=== PATIENT | female | born 1945 | race Caucasian/White ===

== ENCOUNTER 2022-05-17 15:16 | Inpatient (IN) ==
[2022-05-17] MEDS ORDERED: ASPIRIN CHEW 324 MG PO STA (15:29)
[2022-05-17] MEDS ORDERED: ONDANSETRON INJ 2 MG/ML 2 ML VIAL ONE (15:30)
[2022-05-17] MEDS ORDERED: ONDANSETRON INJ 2 MG/ML 2 ML VIAL IV STA ×3 (15:33→18:56)
[2022-05-17] MEDS ORDERED: SODIUM CHLORIDE 0.9% 1000ML 1,000 ML IV ONE (15:33)
[2022-05-17] MEDS: METOPROLOL TARTRATE 1 MG/ML VIAL IV STA ×2 (15:35→15:44)
[2022-05-17 15:36] LABS: Basophils # (auto) 0.04 K/uL (0-0.2); Basophils % (auto) 0.4 %; Eosinophils # (auto) 0.17 K/uL (0-0.50); Eosinophils % (auto) 1.6 %; Hematocrit (blood only) 37.2 % (34.1-44.9); Hemoglobin 12.3 g/dl (12.0-16.0); Immature Granulocytes # (auto) 0.06 K/uL (0.00-0.02); Immature Granulocytes % (auto) 0.6 %; Lymphocytes # (auto) 1.97 K/uL (1.2-3.4); Lymphocytes % (auto) 18.6 %; Mean Corpuscular Hemoglobin 28.7 pg (25.0-34.0); Mean Corpuscular Hgb Conc 33.1 g/dL (32.0-36.0); Mean Corpuscular Volume 86.9 fL (80.0-100.0); Mean Platelet Volume 9.9 fL (9.4-12.3); Monocytes # (auto) 0.84 K/uL (0.24-0.82); Monocytes % (auto) 7.9 %; Neutrophils % (auto) 70.9 %; Platelet Count 323 K/uL (130-400); RDW Coefficient of Variation 14.1 % (11.5-14.5); RDW Standard Deviation 44.9 fL (36.4-46.3); Red Blood Count 4.28 M/uL (3.93-5.22); White Blood Count 10.58 K/ul (4.8-10.8)
--- NOTE | 2022-05-17 15:42 | Emergency Department Note ---
Impression & Plan Atrial fibrillation with rapid ventricular response, CAD (coronary artery disease), Chest pain, ISAEL (acute kidney injury) ED Provider Note NAME: WENDY TINEO AGE: 76 SEX: F : 1945 ARRIVES VIA: Walk-In INFORMANT: Patient ED PROVIDER(S): Zeferino Allen DO CHIEF COMPLAINT: chest pain HPI: Patient is a 76-year-old female who presents the ER for chest pressure associate with shortness of breath. She notes that started around 12:00 today. Pain was radiating up to the jaw and down through the chest. Denies any belly pain but admits to nausea. No dysuria, urgency, or frequency. Pain is currently a 4 out of 10. She notes that she was camping and in a side by side when this occurred. ROS: See above HPI for pertinent positives & negatives. A total of 10 systems reviewed and were otherwise negative. PAST MEDICAL HISTORY:See Below PAST SURGICAL HISTORY:See Below FAMILY HISTORY:See Below SOCIAL HISTORY:See Below HOME MEDICATIONS:See Below ALLERGIES:See Below VITALS:See Below PHYSICAL EXAMINATION: GENERAL: Sitting up in bed, alert, well appearing, well nourished, no distress, non-toxic EYE EXAM: normal conjunctiva. OROPHARYNX: mucous membranes are moist NECK: supple, no nuchal rigidity, no adenopathy, non-tender LUNGS: Clear to auscultation. Normal chest wall mechanics HEART: tachyTachycardic and irregular regular, S1 normal and S2 normal ABDOMEN: abdomen soft, non-tender, normo-active bowel sounds, no masses, no rebound or guarding. UPPER EXTREMITIES: upper extremities are grossly normal. LOWER EXTREMITIES: No pitting edema. NEURO EXAM: Normal sensorium, cranial nerves II-XII grossly intact, normal speech, no gross weakness of arms, no gross weakness of legs. No drift. Finger to nose intact. Gross sensation intact. MEDICAL DECISION MAKING: Patient is a 76-year-old female who presents the ER for chest pain and shortness of breath. I was called to the triage bay as she was found to be in A. fib with RVR. She was taken immediately to be 3. IVs were established blood work was obtained. She was given IV Lopressor initially due to the new onset A. fib with a recent cath which appears to have some kind of occlusive disease. Slowed her rate down and she became slightly hypotensive in the 90s. We did repeat her second dose of Lopressor and blood pressures were in the 70s. She was given an additional liter of fluid. Labs show no significant leukocytosis or anemia. INR unremarkable. BMP with a creatinine of 1.9. No old to compare to. LFTs bilirubin was unremarkable. Troponin was only mildly elevated at 34. Lipase unremarkable. Do favor the ST depressions on EKG and mild elevation in troponin is likely mismatch and demand ischemia. She was given aspirin. She was ordered for Cardizem drip. Discussed with Dr. Ken Covington for further evaluation. Please see their note and cardiology's for the cardioversion and additional treatments. Triage Nursing notes reviewed. Limited review of prior medical records performed Vital Signs: reviewed and remarkable for tachy Differential diagnosis: Cardiac ischemia, aortic dissection, pulmonary embolism, pneumothorax, pneumonia, pericarditis, myocarditis, esophageal rupture, GERD, cholecystitis, pancreatitis, musculoskeletal, as well as other pathologies. ER treatment provided: See below Diagnostics interpreted by me: ECG: VR rate of [address] depressions in the inferior and lateral leads QTC 480 Cardiac Monitoring: An order was placed for continuous cardiac monitoring. The monitor shows a rate of 145 with afib rhythm. Laboratory studies: As stated above and show below. Imaging studies: portable AP upright 1 view of the chest is unremarkable Consultation(s): D/w Ken Covington for further evaluation. Critical Care: I have personally spent 35 minutes of critical care time in the direct management of this patient. This includes bedside care, interpretation of diagnostic studies, and testing, discussion with consultants, patient, and family members, and other required patient management activities. This 35 minutes is in excess of all separately billable procedures. Past Med/Surg History Medical History (Updated 05/17/22 @ 18:20 by MINNIE Warren) Atrial fibrillation with rapid ventricular response CAD (coronary artery disease) Hiatal hernia HLD (hyperlipidemia) HTN (hypertension) Hypothyroidism Obesity Surgical History (Updated 05/17/22 @ 18:16 by MINNIE Warren) H/O esophageal hernia repair Family History (Updated 05/17/22 @ 18:16 by MINNIE Warren) Other Heart disease Hypertension Osteoporosis Social History Smoking Status: Never smoker Hx Substance Use: No Feels Safe at Home: Yes Allergies Allergies Allergy/AdvReac Type Severity Reaction Status Date / Time codeine AdvReac Nausea Verified 05/17/22 18:00 morphine AdvReac Nausea Verified 05/17/22 18:00 Home Meds Home Medications Medication Instructions Recorded Confirmed amlodipine 5 mg tablet 5 mg PO DAILY 05/17/22 05/17/22 calcium carbonate 300 mg (750 mg) 300 tab PO BID 05/17/22 05/17/22 chewable tablet carteolol 1 % eye drops 1 drp OPB Q12 05/17/22 05/17/22 cholecalciferol (vitamin D3) 25 25 mcg PO DAILY 05/17/22 05/17/22 mcg (1,000 unit) tablet (Vitamin D3) levothyroxine 50 mcg tablet 50 mcg PO DAILY 05/17/22 05/17/22 lisinopril 5 mg tablet 5 mg PO DAILY 05/17/22 05/17/22 metoprolol tartrate 25 mg tablet 25 mg PO BID 05/17/22 05/17/22 omeprazole 20 mg capsule,delayed 20 mg PO BID 05/17/22 05/17/22 release pantoprazole 40 mg tablet,delayed 40 mg PO DAILY 05/17/22 05/17/22 release simethicone 80 mg chewable tablet 80 mg PO HS 05/17/22 05/17/22 sucralfate 1 gram tablet 1 g PO ACHS 05/17/22 05/17/22 tafluprost (PF) 0.0015 % eye drops 1 drp ophthalmic (eye) DIRECTED 05/17/22 05/17/22 in a dropperette (Zioptan (PF)) Results & Data (ED) Vital Signs Vital Signs - 24 hr 05/17/22 15:22 05/17/22 15:44 05/17/22 15:17 Pulse Rate 114 H 156 H Pulse Rate [Apical] Respiratory Rate 28 H Respiratory Effort / Characteristics Non-Labored Spontaneous Respiratory Depth Normal Respiratory Pattern Regular Blood Pressure 107/86 106/83 Blood Pressure [Left Arm] Blood Pressure Mean 93 Blood Pressure Mean [Left Arm] Pulse Oximetry 100 Oxygen Delivery Method Room Air Sepsis Recent Fever Within 48 Hours No Sepsis New/Unexplained Change in Mental Status N/A Sepsis Action Taken by Nursing Physician Notified End Tidal CO2 (18-54mmHg) 05/17/22 15:29 05/17/22 17:10 05/17/22 17:10 Pulse Rate 140 H 155 H Pulse Rate [Apical] 117 H Respiratory Rate 16 16 16 Respiratory Effort / Characteristics Respiratory Depth Normal Respiratory Pattern Blood Pressure Blood Pressure [Left Arm] 62/28 L 104/46 L Blood Pressure Mean Blood Pressure Mean [Left Arm] 65 Pulse Oximetry 100 98 97 Oxygen Delivery Method Room Air Sepsis Recent Fever Within 48 Hours Sepsis New/Unexplained Change in Mental Status Sepsis Action Taken by Nursing End Tidal CO2 (18-54mmHg) 35 Laboratory Data Result diagrams: 05/17/22 15:25 05/17/22 15:25 Lab Results 05/17/22 05/17/22 05/17/22 Range/Units 15:25 15:25 15:25 WBC 10.58 (4.8-10.8) K/ul RBC 4.28 (3.93-5.22) M/uL Hgb 12.3 (12.0-16.0) g/dl Hct 37.2 (34.1-44.9) % MCV 86.9 (80.0-100.0) fL MCH 28.7 (25.0-34.0) pg MCHC 33.1 (32.0-36.0) g/dL RDW Std Deviation 44.9 (36.4-46.3) fL RDW Coeff of Anurag 14.1 (11.5-14.5) % Plt Count 323 (130-400) K/uL MPV 9.9 (9.4-12.3) fL Immature Gran % (Auto) 0.6 % Neut % (Auto) 70.9 % Lymph % (Auto) 18.6 % [place] % (Auto) 7.9 % Eos % (Auto) 1.6 % Baso % (Auto) 0.4 % Neut # (Auto) 7.50 H (1.4-6.5) K/uL Lymph # (Auto) 1.97 (1.2-3.4) K/uL [place] # (Auto) 0.84 H (0.24-0.82) K/uL Eos # (Auto) 0.17 (0-0.50) K/uL Baso # (Auto) 0.04 (0-0.2) K/uL Immature Gran # (Auto) 0.06 H (0.00-0.02) K/uL PT (9.0-12.0) Seconds INR (0.9-1.1) Sodium 142 (136-145) mmol/L Potassium 4.2 (3.5-5.1) mmol/L Chloride 108 H (98-107) mmol/L Carbon Dioxide 21 (21-32) mmol/L Anion Gap 13 H (3-11) BUN 29 H (6-23) mg/dl Creatinine 1.98 H (0.6-1.2) mg/dl Est Cr Clr Drug Dosing 20.9 ml/min Est GFR ( Amer) 27.7 ml/min Est GFR (Non-Af Amer) 23.9 ml/min BUN/Creatinine Ratio 14.6 (10-20) Glucose 115 H (70-99(Fasting)) mg/dl Calcium 10.3 H (8.5-10.1) mg/dl Magnesium 1.9 (1.7-2.4) mg/dl Total Bilirubin 0.6 (0.2-1.0) mg/dl AST 18 (13-39) U/L ALT 21 (7-52) U/L Alkaline Phosphatase 67 (34-104) U/L Troponin I High Sens 34.8 H (0-14) pg/ml Total Protein 7.0 (6.0-8.3) gm/dl Albumin 4.5 (3.4-5.0) gm/dl Globulin 2.5 (2.5-4.0) gm/dl Albumin/Globulin Ratio 1.8 (0.9-2) Lipase 33 (11-82) U/L 05/17/ Range/Units 15:25 WBC (4.8-10.8) K/ul RBC (3.93-5.22) M/uL Hgb (12.0-16.0) g/dl Hct (34.1-44.9) % MCV (80.0-100.0) fL MCH (25.0-34.0) pg MCHC (32.0-36.0) g/dL RDW Std Deviation (36.4-46.3) fL RDW Coeff of Anurag (11.5-14.5) % Plt Count (130-400) K/uL MPV (9.4-12.3) fL Immature Gran % (Auto) % Neut % (Auto) % Lymph % (Auto) % [place] % (Auto) % Eos % (Auto) % Baso % (Auto) % Neut # (Auto) (1.4-6.5) K/uL Lymph # (Auto) (1.2-3.4) K/uL [place] # (Auto) (0.24-0.82) K/uL Eos # (Auto) (0-0.50) K/uL Baso # (Auto) (0-0.2) K/uL Immature Gran # (Auto) (0.00-0.02) K/uL PT 10.5 (9.0-12.0) Seconds INR 1.0 (0.9-1.1) Sodium (136-145) mmol/L Potassium (3.5-5.1) mmol/L Chloride (98-107) mmol/L Carbon Dioxide (21-32) mmol/L Anion Gap (3-11) BUN (6-23) mg/dl Creatinine (0.6-1.2) mg/dl Est Cr Clr Drug Dosing ml/min Est GFR ( Amer) ml/min Est GFR (Non-Af Amer) ml/min BUN/Creatinine Ratio (10-20) Glucose (70-99(Fasting)) mg/dl Calcium (8.5-10.1) mg/dl Magnesium (1.7-2.4) mg/dl Total Bilirubin (0.2-1.0) mg/dl AST (13-39) U/L ALT (7-52) U/L Alkaline Phosphatase (34-104) U/L Troponin I High Sens (0-14) pg/ml Total Protein (6.0-8.3) gm/dl Albumin (3.4-5.0) gm/dl Globulin (2.5-4.0) gm/dl Albumin/Globulin Ratio (0.9-2) Lipase (11-82) U/L Administered Medications Aspirin (Aspirin Chew 324 Mg) 324 mg PO NOW STA Stop: 05/17/22 15:30 Last Admin: 05/17/22 15:38 Dose: 324 mg Documented By: JANEEN Sodium Chloride (Nss 1000ml) 1,000 mls @ 999 mls/hr IV .Q1H1M ONE Stop: 05/17/22 16:33 Last Admin: 05/17/22 15:39 Dose: 999 mls/hr Documented By: JANEEN Magnesium Sulfate/Dextrose (Magnesium Sulfate / D5w) 1 gm in 100 mls @ 50 mls/hr IV Q2H SYEDA Stop: 05/17/22 20:44 Last Admin: 05/17/22 18:22 Dose: 50 mls/hr Documented By: Infusion: 05/17/22 18:22 Dose: 50 mls/hr Documented By: Admin: 05/17/22 16:37 Dose: 50 mls/hr Documented By: PIERRE Amiodarone HCl/Dextrose (Nexterone / D5w) 150 mg in 100 mls @ 600 mls/hr IV NOW ONE Stop: 05/17/22 17:39 Last Admin: 05/17/22 17:46 Dose: 600 mls/hr Documented By: JANEEN Co-signed By: JUDSON Amiodarone HCl/Dextrose (Nexterone / D5w) 360 mg in 200 mls @ 33.333 mls/hr IV .Q6H SYEDA Stop: 05/17/22 23:29 Last Admin: 05/17/22 17:47 Dose: 1 mg/min, 33.3 mls/hr Documented By: JANEEN Co-signed By: JUDSON Metoprolol Tartrate (Metoprolol Tartrate 1 Mg/Ml Vial) 5 mg IV NOW STA Stop: 05/17/22 15:30 Last Admin: 05/17/22 15:44 Dose: 5 mg Documented By: Admin: 05/17/22 15:35 Dose: 5 mg Documented By: JANEEN Metoprolol Tartrate (Metoprolol Tartrate 1 Mg/Ml Vial) 5 mg IV NOW STA Stop: 05/17/22 16:50 Last Admin: 05/17/22 17:47 Dose: 5 mg Documented By: JANEEN Metoprolol Tartrate (Metoprolol Tartrate 1 Mg/Ml Vial) 5 mg IV NOW STA Stop: 05/17/22 16:58 Last Admin: 05/17/22 17:51 Dose: Not Given Documented By: JANEEN Ondansetron HCl (Ondansetron Inj 2 Mg/Ml 2 Ml Vial) 4 mg IV NOW STA Stop: 05/17/22 15:34 Last Admin: 05/17/22 15:39 Dose: Not Given Documented By: JANEEN Ondansetron HCl (Ondansetron Inj 2 Mg/Ml 2 Ml Vial) 4 mg IV NOW STA Stop: 05/17/22 16:25 Last Admin: 05/17/22 16:32 Dose: 4 mg Documented By: PIERRE Discontinued Medications Amiodarone HCl/Dextrose (Amiodarone 150mg / 100ml D5w) Confirm Administered Dose 150 mg IV .STK-MED ONE Stop: 05/17/22 17:19 Last Admin: 05/17/22 17:51 Dose: Not Given Documented By: JANEEN Diltiazem HCl (Diltiazem Hcl 5 Mg/Ml 5 Ml Vial) 10 mg IV NOW STA Stop: 05/17/22 16:17 Last Admin: 05/17/22 18:10 Dose: Not Given Documented By: JANEEN Etomidate (Etomidate 2 Mg/Ml 20 Ml Vial) Confirm Administered Dose 40 mg IV .STK-MED ONE Stop: 05/17/22 17:13 Last Admin: 05/17/22 18:09 Dose: Not Given Documented By: JANEEN Heparin Sodium/Dextrose (Heparin 92794 Unit/500 Ml D5w) Confirm Administered Dose 25,000 units IV .STK-MED ONE Stop: 05/17/22 18:15 Last Admin: 05/17/22 18:18 Dose: 650 units Documented By: JANEEN Co-signed By: SANDRA Diltiazem HCl 125 mg/ Dextrose 125 mls @ 5 mls/hr IV .Q24H SYEDA; Protocol Stop: 06/16/22 16:29 Last Admin: 05/17/22 18:10 Dose: Not Given Documented By: JANEEN Miscellaneous (Stat Iv Infusion Titration Per Protocol) 1 each N/A NOW STA Stop: 05/17/22 16:17 Last Admin: 05/17/22 18:09 Dose: Not Given Documented By: JANEEN Ondansetron HCl (Ondansetron Inj 2 Mg/Ml 2 Ml Vial) Confirm Administered Dose 4 mg .ROUTE .STK-MED ONE Stop: 05/17/22 15:31 Last Admin: 05/17/22 15:35 Dose: 4 mg Documented By: JANEEN Imaging Data Radiologist's Impression: Chest X-Ray 05/17/22 15:29 XR chest 1V portable CLINICAL HISTORY: Atypical chest pain. COMPARISON STUDY: No previous studies for comparison. FINDINGS: Lung volumes are normal. Lungs are clear. There is no pneumothorax or pleural effusion. Cardiac size is normal. Mediastinal contours are normal. There is no evidence for pulmonary edema. Patient is rotated. IMPRESSION: No acute cardiopulmonary findings. ACT 112: Negative or not required by law. Electronically signed by: Issa Gaviria M.D. 05/17/2022 4:06 PM Discharge Plan Visit Data Chief Complaint: Chest Pain Stated Complaint: CHEST PAIN, JAW PAIN, VOMITING ED Provider: Zeferino Allen Discharge Problem: Atrial fibrillation with rapid ventricular response, CAD (coronary artery disease), Chest pain, ISEAL (acute kidney injury) Forms Stand Alone Forms: My [facility] Prescriptions Prescriptions: No Action sucralfate 1 gram tablet 1 g PO ACHS calcium carbonate 300 mg (750 mg) tablet,chewable 300 tab PO BID amlodipine 5 mg tablet 5 mg PO DAILY levothyroxine 50 mcg tablet 50 mcg PO DAILY pantoprazole 40 mg tablet,delayed release (DR/EC) 40 mg PO DAILY carteolol 1 % drops 1 drp OPB Q12 omeprazole 20 mg capsule,delayed release(DR/EC) 20 mg PO BID lisinopril 5 mg tablet 5 mg PO DAILY simethicone 80 mg Tablet,Chewable 80 mg PO HS metoprolol tartrate 25 mg tablet 25 mg PO BID cholecalciferol (vitamin D3) [Vitamin D3] 25 mcg (1,000 unit) Tablet 25 mcg PO DAILY Zioptan (PF) 0.0015 % Dropperette 1 drp OPHTHALMIC (EYE) DIRECTED Rx Instructions: administer at bedtime Referrals Referrals: PCP,NO [Physician] -
[2022-05-17 15:58] LABS: Albumin Globulin Ratio 1.8 (0.9-2); Albumin Level 4.5 gm/dl (3.4-5.0); BUN Creatinine Ratio 14.6 (10-20); Bilirubin,Total 0.6 mg/dl (0.2-1.0); Calcium 10.3 mg/dl (8.5-10.1); Creatinine Clr Calc Pharmacy 20.9 ml/min; Est GFR (African American) 27.7 ml/min; Est GFR (Non-African American) 23.9 ml/min; Globulin 2.5 gm/dl (2.5-4.0); Potassium 4.2 mmol/L (3.5-5.1)
[2022-05-17 16:02] LABS: Troponin I High Sensitivity 34.8 pg/ml (0-14)
--- NOTE | 2022-05-17 16:07 | XRay Report ---
XR chest 1V portable CLINICAL HISTORY: Atypical chest pain. COMPARISON STUDY: No previous studies for comparison. FINDINGS: Lung volumes are normal. Lungs are clear. There is no pneumothorax or pleural effusion. Car diac size is normal. Mediastinal contours are normal. There is no evidence for pulmonary edema. Patie nt is rotated. IMPRESSION: No acute cardiopulmonary findings. ACT 112: Negative or not required by law. Electronically signed by: Issa Gaviria M.D. 05/17/2022 4:06 PM
[2022-05-17] MEDS ORDERED: STAT IV Infusion **Titration per Protocol STA (16:16)
[2022-05-17] MEDS ORDERED: dilTIAZem HCl 5 MG/ML 5 ML VIAL IV STA (16:16)
[2022-05-17] MEDS ORDERED: dilTIAZem HCL 125 MG in DEXTROSE 5% 100 ML IV SCH (16:30)
[2022-05-17] MEDS: MAGNESIUM SULFATE / D5W 1 GM/100 ML BAG IV SCH ×2 (16:37→18:22)
[2022-05-17] MEDS ORDERED: METOPROLOL TARTRATE 1 MG/ML VIAL IV STA ×2 (16:49→16:57)
[2022-05-17] MEDS ORDERED: MIDAZOLAM HCL 1 MG/ML 2ML VIAL IV STA (16:56)
[2022-05-17] MEDS ORDERED: fentaNYL citrate 100 MCG/2 ML VIAL IV ONE (16:57)
[2022-05-17] MEDS ORDERED: ETOMIDATE 2 MG/ML 20 ML VIAL IV ONE (17:12)
[2022-05-17] MEDS ORDERED: AMIODARONE 150MG / 100ML D5W IV ONE (17:18)
[2022-05-17] MEDS ORDERED: AMIODARONE / D5W 360 MG/200 ML BAG IV SCH (17:30)
[2022-05-17] MEDS ORDERED: AMIODARONE / D5W 150 MG/100 ML BAG IV ONE (17:30)
--- NOTE | 2022-05-17 17:35 | Cardioversion ---
Date of Service May 17, 2022 PG Electrical Cardioversion Rp Electrical Cardioversion Report Indication: Emergent emergent cardioversion for atrial fibrillation with rapid ventricular response (167 bpm), ST depression, and significant symptoms (nausea and vomiting) Written consent was obtained after the risks and benefits were explained, including but not limited to pain, thermal burn, allergic reaction, aspiration, airway obstruction, laryngospasm, infection, hypotension, and cardiorespiratory arrest. At this time, the risks of the procedure are less than the risks of NOT performing the procedure. The patient was on 100% via NRB and end tidal CO2 monitoring prior to the procedure. Suction, airway equipment, medications, respiratory equipment, ACLS cart, and appropriate personnel were prepared prior to the initiation of the procedure. Sedation was achieved utilizing etomidate 10 mg IV under the supervision of David Burton NP. The biphasic defibrillator was set to 100 joules of energy and synched. After confirmation of sedation and "all clear" safety check the synchronized shock was delivered. There was no change in rhythm. The biphasic defibrillator was set to 150 joules of energy and re-synched. After confirmation of sedation and "all clear" safety check the synchronized shock was delivered This resulted in successful conversion of the dysrhythmia back into sinus rhythm. See nursing notes for dosages and times. There were no complications and the patient recovered uneventfully from the procedure. Subsequent rhythm was sinus with short/rapid atrial runs (SVT seems more likely than A. fib). She did briefly return to a narrow complex tachycardia at 180 bpm but seemed to promptly respond to carotid massage. Coding Level of Care Code Cardioversion, elective Additional Codes Electrical Cardioversion Report ([id number]) Time Spent (min) 40
[2022-05-17] MEDS ORDERED: Heparin IV Adult Wt-Based Low-Dose WITH Bolus Protocol IV SCH (17:41)
--- NOTE | 2022-05-17 17:44 | History & Physical Report ---
Date of Service May 17, 2022 Assessment & Plan (1) Atrial fibrillation with rapid ventricular response: Plan: Patient presents symptomatic with rapid rate, ECG changes and tolerting rate/rythm poorly from heomodynamic standpoint - Cardioversion completed with initial rate control then followed by conversion to NSR at 1700 - Amiodarone infusion 150mg IV over 10 minutes followed by 1mg/hr infusion for 6 hours then 0.5mg/hr for 18 hours - if stable in morning can stop drip and convert to oral dosing - TSH level - Continue to keep MAG ~2.0 - K ~4.0 - ECHO in AM - Heparin infusion with likely transition to DOAC - Cardiology consulted- appreciate assistance (2) GERD (gastroesophageal reflux disease): Plan: GERD with hiatal hernia- she has history of paraesophageal repair - she is planned to have EGD/Colonoscopy in July - remains with dyspepsia and belching - IV PPI now and BID - Continue Carafate - Continue Simethicone- if symptoms persist consider imaging with CT or GI consu ltation - KUB now (3) Elevated troponin: Plan: Likely demand type II at this time - ECG resolved with rate control and conversion - continue to trend HScTNI- medically optimized at this time - follow (4) Hiatal hernia: Plan: As above (5) CAD (coronary artery disease): Plan: nonobstructive sounding with history and medical management - await records from [facility] - Continue with Metoprolol- if HR or BP changes may need to reduce dose - Not on statin at this time- check lipid panel in AM- initiate as deemed appropriate - Continue DONG as BP tolerates (6) HLD (hyperlipidemia): Plan: As above (7) Hypothyroidism: Plan: TSH pending continue synthroid adjust as needed (8) HTN (hypertension): Plan: As above Plan Staff attending Dr. Covington was updated real time and was immediately available for emergent cardioversion. History of Present Illness Primary Care Provider: Mansoor Parry, 76 YOF with medical history of: HTN, HLD, DM, GERD, Hypothyroidism. Patient is a retired nurse. She comes to the EMD today for complaints of jaw pain, vomiting, palpitations with radiation down her arm. Patient states that this started this morning around 11-12, when she was getting out of the camper. She came to the EMD and was noted to be in Afib/Flutter with RVR with HR 140-160. She had routine labs performed, CXR, and ECG done. She was given 10mg IV Lopressor and written for a diltiazem drip. Hospitalist was consulted for admission. Upon evaluation of the patient, she remained persistently nauseated with dry heaves and vomiting, jaw pain with numbness, her HR remains 150 with BP 80-90s. She was started on 2GM of Magnesium while her history was obtained. Overall she was symptomatic and tolerating her rhythm poorly and hemodynamically borderline that would not support pharmacological management. Ditiazem was not administered and discontinued because of BP. Cardiology Dr. Hilton was consulted for cardioversion emergent. He proceeded to come to the bedside. She was consented, due to hemodynamic instability was sedated with Etomidate 10mg IV, she received 2 synchronized cardioversions at 100J each (see procedure note). She did convert to Sinus with runs of afib/SVT in between. She was started on Amiodarone infusion. She is awake and her above symptoms of jaw pain, vomiting and nausea have resolved. She did convert to NSR at 1754. Patient reports that she had symptoms like this previously on of this year. She went to [facility] where she received ECG and breathing treatment, she stated she felt better and left before being fully evaluated. They later called her back at 230 in the morning and instructed her to "come back to the EMD because she was having a heart attack". She reports then she was admitted, placed on heparin infusion and had cardiac catheterization perform ed. She recalls being told she had some age expected changes, but no intervention was required and was medically managed. She was placed on Lasix, which she stopped a few weeks ago because it made her feel "terrible" with nausea and weakness. Since that time she remains active and without chest pain or symptoms of above. Patient will be admitted to PCU: continue amiodarone infusion and heparin drip overnight. COVID test on admission is: Pending Allergies Allergy/AdvReac Type Severity Reaction Status Date / Time codeine AdvReac Nausea Verified 05/17/22 18:00 morphine AdvReac Nausea Verified 05/17/22 18:00 Home Medications Medication Instructions Recorded Confirmed Type amlodipine 5 mg tablet 5 mg PO DAILY 05/17/22 05/17/22 History calcium carbonate 300 mg (750 mg) 300 tab PO BID 05/17/22 05/17/22 History chewable tablet carteolol 1 % eye drops 1 drp OPB Q12 05/17/22 05/17/22 History cholecalciferol (vitamin D3) 25 25 mcg PO DAILY 05/17/22 05/17/22 History mcg (1,000 unit) tablet (Vitamin D3) levothyroxine 50 mcg tablet 50 mcg PO DAILY 05/17/22 05/17/22 History lisinopril 5 mg tablet 5 mg PO DAILY 05/17/22 05/17/22 History metoprolol tartrate 25 mg tablet 25 mg PO BID 05/17/22 05/17/22 History omeprazole 20 mg capsule,delayed 20 mg PO BID 05/17/22 05/17/22 History release pantoprazole 40 mg tablet,delayed 40 mg PO DAILY 05/17/22 05/17/22 History release simethicone 80 mg chewable tablet 80 mg PO HS 05/17/22 05/17/22 History sucralfate 1 gram tablet 1 g PO ACHS 05/17/22 05/17/22 History tafluprost (PF) 0.0015 % eye drops 1 drp ophthalmic (eye) DIRECTED 05/17/22 05/17/22 History in a dropperette (Zioptan (PF)) Past Med/Surg History Medical History Atrial fibrillation with rapid ventricular response CAD (coronary artery disease) Hiatal hernia HLD (hyperlipidemia) HTN (hypertension) Hypothyroidism Obesity Surgical History H/O esophageal hernia repair Family History Other Heart disease Hypertension Osteoporosis Social History Smoking Status: Never smoker Hx Substance Use: No Feels Safe at Home: Yes Review of Systems Review of Systems: REVIEW OF SYSTEMS: Constitutional: No fever, sweats or chills Eyes: No diplopia, no worsening or blurred vision ENT: normal hearing, no trouble swallowing Respiratory: No cough, sputum, dyspnea at rest or on exertion Cardiovascular: (+) jaw pain, chest pain, tightness or palpitations, n/v Abdomen: (+) nausea, vomiting, NO diarrhea or constipation Musculoskeletal: No joint pain, calf pain, swelling Neurologic: No weakness, numbness/tingling, or balance problems Psychiatric: No anxiety or depression Skin: No rash or itch Physical Exam Physical Exam: PHYSICAL EXAM: General: awake, alert, ill appearing Head: Normocephalic, atraumatic ENT: PERRL, EOMI, no pharyngeal exudate, mucous membranes dry Neuro: AAO x 3, speech clear and appropriate, strength intact bilaterally 5/5, sensation intact and equal all extremities and dermatomes, no pronator drift Chest: equal rise and fall of the chest, no accessory muscle use, no heaves or thrills, Clear to auscultation, on room air, Cardiac: irregular rate and rhythm, telemetry reviewed- narrow complex irregular, skin warm dry, cap refill <3 seconds, peripheral pulses +2 no JVD, no murmur, no edema GI: NABS x 4 quadrants, soft, nontender to palpation, no rebound, guarding or tenderness : Spontaneously voiding, no pain, no CVA tenderness, Extremities: Normal inspection, no peripheral edema or erythema, calfs nontender to palpation Psych: Normal mood and affect Skin: no rash or erythema Results & Data Results & Data ([facility]) Vital Signs (Past 12 Hours) Vital Signs Pulse Pulse Resp BP BP Pulse Ox O2 Del Method 05/17/22 17:10 117 H 16 104/46 L 97 05/17/22 17:10 155 H 16 62/28 L 98 05/17/22 15:29 140 H 16 100 Room Air 05/17/22 15:17 Room Air 05/17/22 15:44 156 H 106/83 05/17/22 15:22 114 H 28 H 107/86 100 Laboratory Results Laboratory Results - last 24 hr 05/17/22 05/17/22 05/17/22 15:25 15:25 15:25 WBC 10.58 RBC 4.28 Hgb 12.3 Hct 37.2 MCV 86.9 MCH 28.7 MCHC 33.1 RDW Std Deviation 44.9 RDW Coeff of Anurag 14.1 Plt Count 323 MPV 9.9 Immature Gran % (Auto) 0.6 Neut % (Auto) 70.9 Lymph % (Auto) 18.6 [place] % (Auto) 7.9 Eos % (Auto) 1.6 Baso % (Auto) 0.4 Neut # (Auto) 7.50 H Lymph # (Auto) 1.97 [place] # (Auto) 0.84 H Eos # (Auto) 0.17 Baso # (Auto) 0.04 Immature Gran # (Auto) 0.06 H Sodium 142 Potassium 4.2 Chloride 108 H Carbon Dioxide 21 Anion Gap 13 H BUN 29 H Creatinine 1.98 H Est Cr Clr Drug Dosing 20.9 Est GFR ( Amer) 27.7 Est GFR (Non-Af Amer) 23.9 BUN/Creatinine Ratio 14.6 Glucose 115 H Calcium 10.3 H Magnesium 1.9 Total Bilirubin 0.6 AST 18 ALT 21 Alkaline Phosphatase 67 Troponin I High Sens 34.8 H Total Protein 7.0 Albumin 4.5 Globulin 2.5 Albumin/Globulin Ratio 1.8 Lipase 33 Diagnostic Findings Chest X-Ray 05/17/22 15:29 XR chest 1V portable CLINICAL HISTORY: Atypical chest pain. COMPARISON STUDY: No previous studies for comparison. FINDINGS: Lung volumes are normal. Lungs are clear. There is no pneumothorax or pleural effusion. Cardiac size is normal. Mediastinal contours are normal. There is no evidence for pulmonary edema. Patient is rotated. IMPRESSION: No acute cardiopulmonary findings. ACT 112: Negative or not required by law. Electronically signed by: Issa Gaviria M.D. 05/17/2022 4:06 PM Medications Administered Home Medications amlodipine 5 mg tablet 5 mg PO DAILY 05/17/22 [History Confirmed 05/17/22] calcium carbonate 300 mg (750 mg) chewable tablet 300 tab PO BID 05/17/22 [History Confirmed 05/17/22] carteolol 1 % eye drops 1 drp OPB Q12 05/17/22 [History Confirmed 05/17/22] cholecalciferol (vitamin D3) 25 mcg (1,000 unit) tablet (Vitamin D3) 25 mcg PO DAILY 05/17/22 [History Confirmed 05/17/22] levothyroxine 50 mcg tablet 50 mcg PO DAILY 05/17/22 [History Confirmed 05/17/22] lisinopril 5 mg tablet 5 mg PO DAILY 05/17/22 [History Confirmed 05/17/22] metoprolol tartrate 25 mg tablet 25 mg PO BID 05/17/22 [History Confirmed 05/17/22] omeprazole 20 mg capsule,delayed release 20 mg PO BID 05/17/22 [History Con firmed 05/17/22] pantoprazole 40 mg tablet,delayed release 40 mg PO DAILY 05/17/22 [History Confirmed 05/17/22] simethicone 80 mg chewable tablet 80 mg PO HS 05/17/22 [History Confirmed 05/17/22] sucralfate 1 gram tablet 1 g PO ACHS 05/17/22 [History Confirmed 05/17/22] tafluprost (PF) 0.0015 % eye drops in a dropperette (Zioptan (PF)) 1 drp ophthalmic (eye) DIRECTED 05/17/22 [History Confirmed 05/17/22] Active Medications Aspirin (Aspirin Chew 324 Mg) 324 mg PO NOW STA Stop: 05/17/22 15:30 Last Admin: 05/17/22 15:38 Dose: 324 mg Heparin Sodium (Porcine) (Heparin Sod (Porcine) 1000 Unit/Ml) 1 units IV NOW ONE Stop: 05/17/22 17:55 Heparin Sodium/Dextrose (Heparin Iv Adult Wt-Based Low-Dose With Bolus Protocol) 1 each IV Q15M SYEDA; Protocol Stop: 06/16/22 17:40 Sodium Chloride (Nss 1000ml) 1,000 mls @ 999 mls/hr IV .Q1H1M ONE Stop: 05/17/22 16:33 Last Admin: 05/17/22 15:39 Dose: 999 mls/hr Magnesium Sulfate/Dextrose (Magnesium Sulfate / D5w) 1 gm in 100 mls @ 50 mls/hr IV Q2H SYEDA Stop: 05/17/22 20:44 Last Admin: 05/17/22 16:37 Dose: 50 mls/hr Amiodarone HCl/Dextrose (Nexterone / D5w) 150 mg in 100 mls @ 600 mls/hr IV NOW ONE Stop: 05/17/22 17:39 Last Admin: 05/17/22 17:46 Dose: 600 mls/hr Amiodarone HCl/Dextrose (Nexterone / D5w) 360 mg in 200 mls @ 33.333 mls/hr IV .Q6H SYEDA Stop: 05/17/22 23:29 Last Admin: 05/17/22 17:47 Dose: 1 mg/min, 33.3 mls/hr Amiodarone HCl/Dextrose (Nexterone / D5w) 360 mg in 200 mls @ 16.667 mls/hr IV .Q12H SYEDA Stop: 06/16/22 23:29 Heparin Sodium/Dextrose (Heparin Sodium/Dextrose) 25,000 units in 500 mls @ 0.02 mls/hr IV .Q24H SYEDA; Protocol Stop: 06/16/22 17:59 Pantoprazole Sodium 40 mg/ (Syringe) 10 mls @ 5 mls/min IV NOW ONE Stop: 05/17/22 17:50 Metoprolol Tartrate (Metoprolol Tartrate 1 Mg/Ml Vial) 5 mg IV NOW STA Stop: 05/17/22 15:30 Last Admin: 05/17/22 15:44 Dose: 5 mg Metoprolol Tartrate (Metoprolol Tartrate 1 Mg/Ml Vial) 5 mg IV NOW STA Stop: 05/17/22 16:50 Last Admin: 05/17/22 17:47 Dose: 5 mg Metoprolol Tartrate (Metoprolol Tartrate 1 Mg/Ml Vial) 5 mg IV NOW STA Stop: 05/17/22 16:58 Last Admin: 05/17/22 17:51 Dose: Not Given Miscellaneous (Stat Iv Infusion Titration Per Protocol) 1 each N/A NOW STA Stop: 05/17/22 16:17 Ondansetron HCl (Ondansetron Inj 2 Mg/Ml 2 Ml Vial) 4 mg IV NOW STA Stop: 05/17/22 15:34 Last Admin: 05/17/22 15:39 Dose: Not Given Ondansetron HCl (Ondansetron Inj 2 Mg/Ml 2 Ml Vial) 4 mg IV NOW STA Stop: 05/17/22 16:25 Last Admin: 05/17/22 16:32 Dose: 4 mg ECG Additional Comments: Atrial fibrillation with rapid ventricular response Left axis deviation Marked ST abnormality, possible inferior subendocardial injury Abnormal ECG No previous ECGs available Code Status & VTE Plan Code Status CODE: FULL VTE: SCDS, Heparin infusion VTE Prophylaxis Plan VTE Prophylaxis will be ordered: Yes Supervising Physician Co-Signing Physician Notes I supervised MINNIE Crowder on this admission. I interviewed and examined the patient independently of him. The plan is as written in his note except for any following changes/exceptions: None 76yo F being admitted for afib with RVR. BP was as low as 60/30 while in afib and decision was made to semi-urgently cardiovert her. Dr. Hilton alerted and agreed with plan. She was successfully cardioverted without complication. Now on amiodarone gtt. Cardiology following. PG Care Time/CCT Total # of Minutes Spent Total Time Spent with Patient: Total time spent is greater than 50% in coordination of care (as documented) at patient's floor/unit and/or counseling patient: 60 minutes of critical care time- time spent reviewing history/obtaining outside records, consulting with specialists, pre/intra/post cardioversion management, reassessments of symptoms Coding Level of Care Code 04431 Initial Inpt Care Lvl 3 Diagnoses Atrial fibrillation with rapid ventricular response I48.91 GERD (gastroesophageal reflux disease) K21.9 Elevated troponin R77.8 Hiatal hernia K44.9 CAD (coronary artery disease) I25.10 HLD (hyperlipidemia) E78.5 Hypothyroidism E03.9 HTN (hypertension) I10
[2022-05-17] MEDS ORDERED: PANTOprazole 40 MG in SYRINGE 0 ML IV ONE (17:49)
[2022-05-17] MEDS ORDERED: HEPARIN SOD (PORCINE) 1000 UNIT/ML IV ONE (17:54)
[2022-05-17] MEDS ORDERED: HEPARIN SODIUM/DEXTROSE 25,000 UNITS/500 ML BAG IV SCH (18:00)
--- NOTE | 2022-05-17 18:02 | Cardiology Consultation ---
Date of Consultation May 17, 2022 Assessment & Plan (1) Atrial fibrillation with rapid ventricular response: (2) CAD (coronary artery disease): Plan 76-year-old woman new to our institution who presented with atrial fibrillation with rapid ventricular response and ST depression/symptoms suggesting some degree of myocardial ischemia, likely due to supply/demand mismatch. Details of her recent cardiac catheterization are not available, likely borderline occlusive and/or branch vessel disease given the absence of plans for revascularization. Agree with IV magnesium. Agree with IV amiodarone, since rhythm control will be critical in preventing tachycardia with resultant excessive cardiac demands. Would recommend aspirin and statin for her CAD. No immediate need for beta- valerie given amiodarone infusion. Heparinization seems appropriate both for thromboembolic prophylaxis as well as given the possibility of plaque rupture with underlying CAD. No ST elevations to prompt heart alert at this time. However, low threshold to repeat cardiac catheterization if she were to have ongoing chest symptoms despite control of her rate/rhythm. Dr. Gar will be covering the weekend, but please feel free to contact me this evening if further issues occur, since I'm now familiar with the patient's situation. History of Present Illness History of Present Illness 76-year-old woman with CAD (details uncertain, recent cath at [place] with "blockages" but no intervention planned) who noted abrupt onset of tachy- palpitations around noon today associated with chest pain radiating to the jaw and associated with significant nausea. ECG showed atrial fibrillation with rapid ventricular response 167 bpm with significant precordial ST depressions. Initial attempt to slow rate with IV diltiazem and IV metoprolol were not successful and she became mildly hypotensive. Due to concerns that she is having ongoing myocardial ischemia secondary to supply/demand mismatch from underlying coronary disease exacerbated by tachycardia, she underwent emergent electrical cardioversion (procedure note for details). Her rhythm did return to sinus, but she continues to have short runs of a narrow complex tachycardia. One of these runs was more sustained at a rate of 187 bpm, due to the rapid rate it was difficult to discern any irregularity on the monitor and she did promptly respond to carotid massage with return to sinus rhythm, raising the possibility that she has a paroxysmal supraventricular tachycardia as well. Either way, she is receiving intravenous magnesium sulfate and intravenous amiodarone. Post cardioversion, she appeared more comfortable and felt less symptomatic. Her blood pressure was low normal and her heart rate ranged from 100 bpm to 130 bpm with the exception of continued short atrial runs at much higher rates. PMH: Due to the emergent situation, detailed past medical history has not yet been obtained. She and her did note that she has not had any falls or bleeding issues. Allergies Allergy/AdvReac Type Severity Reaction Status Date / Time codeine AdvReac Nausea Verified 05/17/22 18:00 morphine AdvReac Nausea Verified 05/17/22 18:00 Home Medications Medication Instructions Recorded Confirmed Type amlodipine 5 mg tablet 5 mg PO DAILY 05/17/22 05/17/22 History calcium carbonate 300 mg (750 mg) 300 tab PO BID 05/17/22 05/17/22 History chewable tablet carteolol 1 % eye drops 1 drp OPB Q12 05/17/22 05/17/22 History cholecalciferol (vitamin D3) 25 25 mcg PO DAILY 05/17/22 05/17/22 History mcg (1,000 unit) tablet (Vitamin D3) levothyroxine 50 mcg tablet 50 mcg PO DAILY 05/17/22 05/17/22 History lisinopril 5 mg tablet 5 mg PO DAILY 05/17/22 05/17/22 History metoprolol tartrate 25 mg tablet 25 mg PO BID 05/17/22 05/17/22 History omeprazole 20 mg capsule,delayed 20 mg PO BID 05/17/22 05/17/22 History release pantoprazole 40 mg tablet,delayed 40 mg PO DAILY 05/17/22 05/17/22 History release simethicone 80 mg chewable tablet 80 mg PO HS 05/17/22 05/17/22 History sucralfate 1 gram tablet 1 g PO ACHS 05/17/22 05/17/22 History tafluprost (PF) 0.0015 % eye drops 1 drp ophthalmic (eye) DIRECTED 05/17/22 05/17/22 History in a dropperette (Zioptan (PF)) Patient History Social History Smoking Status: Never smoker Hx Substance Use: No Feels Safe at Home: Yes Physical Exam Physical Exam: Elderly white female who appeared uncomfortable and somewhat distressed initially, more comfortable post cardioversion. Systolic blood pressure in the 90s precardioversion, 100-110 mmHg post cardioversion. Heart rate 167 precardioversion, 100-130 bpm post cardioversion. Skin: no ecchymoses or generalized lesions. HEENT: unremarkable. Neck: no JVD or carotid bruits. Lungs: Mildly decreased breath sounds, clear. Cardiac: Initially irregular rhythm, now regular rhythm with frequent ectopy, no obvious murmur or gallop. Abdomen: benign. Extremities: no edema, pulses intact. Neurologic: Somewhat subdued affect, answers simple questions appropriately, grossly nonfocal. Results & Data ([facility]) Vital Signs (Past 12 Hours) Vital Signs Pulse Pulse Resp BP BP Pulse Ox O2 Del Method 05/17/22 17:10 117 H 16 104/46 L 97 05/17/22 17:10 155 H 16 62/28 L 98 05/17/22 15:29 140 H 16 100 Room Air 05/17/22 15:17 Room Air 05/17/22 15:44 156 H 106/83 05/17/22 15:22 114 H 28 H 107/86 100 Laboratory Results White count 10.58, normal hemoglobin and platelet count. Normal electrolytes with potassium of 4.2, BUN 29, creatinine 1.98. Glucose 115. Normal transaminases. High-sensitivity troponin 34.8. Diagnostic Findings ECG as noted in HPI. Chest x-ray no acute process. PG Care Time/CCT Total # of Minutes Spent Total Time Spent with Patient: Total time spent is greater than 50% in coordination of care (as documented) at patient's floor/unit and/or counseling patient: Coding Level of Care Code 04695 Inpt Consult Level 5 Diagnoses Atrial fibrillation with rapid ventricular response I48.91 CAD (coronary artery disease) I25.10
[2022-05-17] MEDS ORDERED: HEPARIN 25000 UNIT/500 ML D5W IV ONE (18:14)
[2022-05-17 18:20] LABS: Prothrombin Time 10.5 Seconds (9.0-12.0)
[2022-05-17] MEDS ORDERED: SUCRALFATE 1 GM TAB PO STA (18:56)
--- NOTE | 2022-05-17 19:41 | XRay Report ---
KUB CLINICAL HISTORY: hx of hiatal hernia repair- eval for any free air COMPARISON STUDY: None. FINDINGS: Paucity of bowel gas is noted. There is no radiographic evidence for a bowel obstruction. S ensitivity for detection of free air is diminished on this supine exam but none is identified. IMPRESSION: 1. Decreased sensitivity for detection of free air given supine exam but none identified. 2. No radiographic evidence for a bowel obstruction. ACT 112: Negative or not required by law. Electronically signed by: Issa Gaviria M.D. 05/17/2022 7:39 PM
[2022-05-17] MEDS ORDERED: ACETAMINOPHEN 325 MG TAB PO PRN (20:47)
[2022-05-17] MEDS ORDERED: METOCLOPRAMIDE HCL INJ 5 MG/ML 2 ML VIAL IV PRN (20:47)
[2022-05-17] MEDS: SUCRALFATE 1 GM TAB PO SCH (21:55)
[2022-05-17] MEDS: METOPROLOL TARTRATE 25 MG TAB PO SCH (21:55)
[2022-05-17] MEDS: SIMETHICONE 80 MG CHEW PO SCH (21:55)
[2022-05-17] MEDS: PANTOprazole 40 MG in SYRINGE 0 ML IV SCH (21:56)
[2022-05-17] MEDS: HEPARIN SODIUM/DEXTROSE 25,000 UNITS/500 ML BAG IV SCH (22:21)
[2022-05-17] MEDS: AMIODARONE / D5W 360 MG/200 ML BAG IV SCH (23:03)
[2022-05-17] MEDS: ONDANSETRON INJ 2 MG/ML 2 ML VIAL IV PRN (23:19)
[2022-05-18 00:58] LABS: Partial Thromboplastin Ratio 1.1; Partial Thromboplastin Time 29.1 Seconds (21.0-31.0)
[2022-05-18] MEDS ORDERED: HEPARIN SOD (PORCINE) 1000 UNIT/ML IV ONE (01:30)
[2022-05-18 08:11] LABS: Basophils # (auto) 0.04 K/uL (0-0.2); Basophils % (auto) 0.5 %; Eosinophils # (auto) 0.12 K/uL (0-0.50); Eosinophils % (auto) 1.5 %; Immature Granulocytes # (auto) 0.03 K/uL (0.00-0.02); Immature Granulocytes % (auto) 0.4 %; Lymphocytes % (auto) 22.4 %; Mean Corpuscular Hemoglobin 29.1 pg (25.0-34.0); Mean Corpuscular Hgb Conc 32.3 g/dL (32.0-36.0); Mean Corpuscular Volume 90.1 fL (80.0-100.0); Mean Platelet Volume 10.1 fL (9.4-12.3); Monocytes # (auto) 0.67 K/uL (0.24-0.82); Monocytes % (auto) 8.3 %; Neutrophils # (auto) 5.37 K/uL (1.4-6.5); Neutrophils % (auto) 66.9 %; Platelet Count 253 K/uL (130-400); RDW Coefficient of Variation 14.3 % (11.5-14.5); RDW Standard Deviation 46.5 fL (36.4-46.3); Red Blood Count 3.44 M/uL (3.93-5.22); White Blood Count 8.03 K/ul (4.8-10.8)
[2022-05-18] MEDS: lisinopril 5 MG TAB PO SCH (08:40)
[2022-05-18] MEDS: amLODIPine BESYLATE 5 MG TAB PO SCH (08:40)
[2022-05-18] MEDS: LEVOTHYROXINE SODIUM 50 MCG TABLET PO SCH (08:40)
[2022-05-18] MEDS: CARTEOLOL HCL 1% OP SOLN 5 ML BTL OPB SCH ×2 (08:40→20:25)
[2022-05-18] MEDS: METOPROLOL TARTRATE 25 MG TAB PO SCH ×2 (08:41→20:25)
[2022-05-18] MEDS: SUCRALFATE 1 GM TAB PO SCH ×3 (08:41→20:25)
[2022-05-18] MEDS: PANTOprazole 40 MG in SYRINGE 0 ML IV SCH ×2 (08:41→20:24)
[2022-05-18 08:50] LABS: BUN Creatinine Ratio 14.4 (10-20); Calcium 8.8 mg/dl (8.5-10.1); Est GFR (African American) 31.1 ml/min; Est GFR (Non-African American) 26.9 ml/min; Magnesium 2.3 mg/dl (1.7-2.4); Potassium 3.5 mmol/L (3.5-5.1)
[2022-05-18 09:03] LABS: Partial Thromboplastin Ratio 2.6
[2022-05-18] MEDS: AMIODARONE / D5W 360 MG/200 ML BAG IV SCH ×2 (09:30→22:04)
[2022-05-18 09:47] LABS: Partial Thromboplastin Time 70.9 Seconds (21.0-31.0)
--- NOTE | 2022-05-18 12:52 | Cardiology Progress Note ---
Date of Service May 18, 2022 Assessment & Plan (1) Atrial fibrillation with rapid ventricular response: (2) Anticoagulant long-term use: Plan 1. Atrial fibrillation: She was quite symptomatic on presentation and with treatment with AV jose blocking medication she had significant hypotension and it may be difficult to control her rate without causing hypotension. My recommendation would be to continue amiodarone to try to minimize the risk of recurrence of atrial fibrillation. I would also continue low-dose beta- blockade. I would recommend switching to oral amiodarone, I would overlap by 24 hours and then discontinue intravenous amiodarone tomorrow. I will enter those orders. 2. Anticoagulation: She should be on an anticoagulant over the long run, I would recommend Eliquis, her dose would be 5 mg twice a day. I have not ordered that as yet. Admission and Anticipated Discharge Date Admission Date: May 17, 2022 Subjective Events of past 24 hours reviewed. In brief this is a 76-year-old woman who presented in atrial fibrillation with rapid heart rates, she became hypotensive with intravenous rate control medications and therefore underwent emergent electrical cardioversion on the afternoon of May 17, 2022. She had some atrial arrhythmias initially but remained in sinus rhythm since. She was started on intravenous amiodarone. The amiodarone has continued, currently 0.5 mg/min. She is also on metoprolol tartrate 25 mg twice a day and therapeutic heparin as an anticoagulant. She is having no cardiovascular symptoms but does not feel quite normal today as yet. Nothing specific. She thinks she may have had a similar episode over Memorial Day, but did go to the hospital and was not told she was in atrial fibrillation but wonders if it may have stopped before she got there. Other than that she has had no other episodes that she is aware. Physical Exam Physical Exam: Constitutional: Alert, cooperative and in no distress. Pulmonary: Clear to auscultation bilaterally. Cardiac: Regular rhythm with no murmur, gallop or rub. Abdomen: Soft, nontender with normal bowel sounds. Extremities: No edema. Skin: No rash, ecchymoses or petechiae. Results & Data ([facility]) Vital Signs (Past 12 Hours) Vital Signs Temp Pulse Pulse Resp BP Pulse Ox O2 Del Method 05/18/22 11:30 36.8 C 80 19 119/75 97 Room Air 05/18/22 10:42 71 05/18/22 07:20 37.0 C 88 18 131/71 95 Room Air 05/18/22 03:19 37.0 C 77 16 140/78 94 Room Air Laboratory Results Cardiac Enzymes 05/17/22 05/17/22 05/18/22 Range/Units 15:25 21:13 01:48 AST 18 (13-39) U/L Troponin I High Sens 34.8 H 274.3 H* D 359.4 H* D (0-14) pg/ml 05/18/22 Range/Units 07:50 AST (13-39) U/L Troponin I High Sens 417.8 H* (0-14) pg/ml Coagulation 05/17/22 05/18/22 05/18/22 Range/Units 15:25 00:16 07:50 PT 10.5 (9.0-12.0) Seconds APTT 29.1 70.9 H* (21.0-31.0) Seconds CBC 05/17/22 05/18/22 Range/Units 15:25 07:50 WBC 10.58 8.03 (4.8-10.8) K/ul RBC 4.28 3.44 L (3.93-5.22) M/uL Hgb 12.3 10.0 L (12.0-16.0) g/dl Hct 37.2 31.0 L (34.1-44.9) % Plt Count 323 253 (130-400) K/uL Neut # (Auto) 7.50 H 5.37 (1.4-6.5) K/uL Lymph # (Auto) 1.97 1.80 (1.2-3.4) K/uL Sterling # (Auto) 0.84 H 0.67 (0.24-0.82) K/uL Eos # (Auto) 0.17 0.12 (0-0.50) K/uL Baso # (Auto) 0.04 0.04 (0-0.2) K/uL Comprehensive Metabolic Panel 05/17/22 05/18/22 Range/Units 15:25 07:50 Sodium 142 141 (136-145) mmol/L Potassium 4.2 3.5 (3.5-5.1) mmol/L Chloride 108 H 111 H (98-107) mmol/L Carbon Dioxide 21 23 (21-32) mmol/L BUN 29 H 26 H (6-23) mg/dl Creatinine 1.98 H 1.80 H (0.6-1.2) mg/dl Glucose 115 H 93 (70-99(Fasting)) mg/dl Calcium 10.3 H 8.8 (8.5-10.1) mg/dl AST 18 (13-39) U/L ALT 21 (7-52) U/L Alkaline Phosphatase 67 (34-104) U/L Total Protein 7.0 (6.0-8.3) gm/dl Albumin 4.5 (3.4-5.0) gm/dl Intake and Output 05/17/22 05/18/22 05/18/22 22:59 06:59 14:59 Intake Total 1287.5 / 1532.350 244.850 / 1532.350 303.048 / 303.048 Balance 1287.5 / 1532.350 244.850 / 1532.350 303.048 / 303.048 Intake: IV 1287.5 / 1532.350 244.850 / 1532.350 303.048 / 303.048 Amiodarone / D5w 150 mg In 100 100 / 100 ml @ 600 mls/hr IV NOW ONE Rx#: [id number] Amiodarone / D5w 360 mg In 200 200 / 200 174.515 / 174.515 ml @ 0.5 MG/MIN 16.667 mls/hr IV .Q12H SYEDA Rx#:[id number] Heparin Sodium/Dextrose 25,000 44.850 / 44.850 128.533 / 128.533 units In 500 ml @ 800 UNITS/HR 16 mls/hr IV .Q24H SYEDA Rx#: [id number] Magnesium Sulfate / D5w 1 gm In 187.5 / 187.5 100 ml @ 50 mls/hr IV Q2H SYEDA Rx#:[id number] Sodium Chloride 0.9% 1000ML 1, 1000 / 1000 000 ml @ 999 mls/hr IV .Q1H1M ONE Rx#:[id number] Other: # Unmeasured Voids 1 2 Weight 69.3 kg 71.4 kg Weight Measurement Method Built in [facility] Built in [facility] Diagnostic Findings Telemetry: Sinus rhythm rates 70-80 since cardioversion. PG Care Time/CCT Total # of Minutes Spent Total Time Spent with Patient: Total time spent is greater than 50% in coordination of care (as documented) at patient's floor/unit and/or counseling patient: Coding Level of Care Code 29584 Subseq Hosp Care Lvl 3 Diagnoses Atrial fibrillation with rapid ventricular response I48.91 Anticoagulant long-term use Z79.01
--- NOTE | 2022-05-18 15:25 | Electrocardiogram Report ---
Test Reason : Blood Pressure : / mmHG Vent. Rate : 167 BPM Atrial Rate : 100 BPM P-R Int : 000 ms QRS Dur : 070 ms QT Int : 288 ms P-R-T Axes : 000 -42 188 degrees QTc Int : 480 ms Poor data quality, interpretation may be adversely affected Atrial fibrillation with rapid ventricular response Left axis deviation Marked ST abnormality, possible inferior subendocardial injury Marked ST abnormality, possible anterolateral subendocardial injury Abnormal ECG No previous ECGs available Confirmed by Jt Borrero ([id number]) on 05/18/2022 3:24:48 PM Referred By: REFERRED SELF Confirmed By:Jt Borrero
--- NOTE | 2022-05-18 15:28 | Electrocardiogram Report ---
Test Reason : Blood Pressure : / mmHG Vent. Rate : 080 BPM Atrial Rate : 080 BPM P-R Int : 142 ms QRS Dur : 080 ms QT Int : 410 ms P-R-T Axes : 036 000 023 degrees QTc Int : 472 ms Sinus rhythm with Premature atrial complexes Low voltage QRS Borderline ECG When compared with ECG of 17-MAY-2022 15:22, (unconfirmed) Sinus rhythm has replaced Atrial fibrillation Vent. rate has decreased BY [address] no longer depressed in Anterolateral leads T wave inversion no longer evident in Anterolateral leads Confirmed by Jt Borrero ([id number]) on 05/18/2022 3:28:31 PM Referred By: REFERRED SELF Confirmed By:Jt Borrero
--- NOTE | 2022-05-18 16:00 | Electrocardiogram Report ---
Test Reason : Blood Pressure : / mmHG Vent. Rate : 074 BPM Atrial Rate : 074 BPM P-R Int : 154 ms QRS Dur : 088 ms QT Int : 420 ms P-R-T Axes : 045 002 016 degrees QTc Int : 466 ms Normal sinus rhythm Low voltage QRS Abnormal ECG When compared with ECG of 17-MAY-2022 17:57, (unconfirmed) Premature atrial complexes are no longer Present Confirmed by Jt Borrero ([id number]) on 05/18/2022 3:59:29 PM Referred By: REFERRED SELF Confirmed By:Jt Borrero
[2022-05-18 16:08] LABS: Partial Thromboplastin Ratio 1.6; Partial Thromboplastin Time 43.9 Seconds (21.0-31.0)
--- NOTE | 2022-05-18 16:28 | XCELERA ---
[id number]
[2022-05-18] MEDS: AMIODARONE 200 MG TAB PO SCH (17:05)
[2022-05-18] MEDS: ONDANSETRON INJ 2 MG/ML 2 ML VIAL IV PRN (20:24)
[2022-05-18] MEDS: SIMETHICONE 80 MG CHEW PO SCH (20:25)
--- NOTE | 2022-05-18 21:45 | Hospitalist Progress Note ---
Date of Service May 18, 2022 Assessment & Plan (1) Atrial fibrillation with rapid ventricular response: Plan: Patient presents symptomatic with rapid rate, ECG changes and tolerting rate/rythm poorly from heomodynamic standpoint - Cardioversion completed with initial rate control then followed by conversion to NSR at 1700 - Amiodarone infusion 150mg IV over 10 minutes followed by 1mg/hr infusion for 6 hours then 0.5mg/hr for 18 hours - if stable in morning can stop drip and convert to oral dosing - TSH level - Continue to keep MAG ~2.0 - K ~4.0 - ECHO in AM - Heparin infusion with likely transition to DOAC - Cardiology consulted- appreciate assistance On 05/18, HR appears improved. continue amiodarone and heparin drip. HR at goal. (2) GERD (gastroesophageal reflux disease): Plan: GERD with hiatal hernia- she has history of paraesophageal repair - she is planned to have EGD/Colonoscopy in July - remains with dyspepsia and belching - IV PPI now and BID - Continue Carafate - Continue Simethicone- if symptoms persist consider imaging with CT or GI consultation - KUB now (3) Elevated troponin: Plan: Likely demand type II at this time - ECG resolved with rate control and conversion - continue to trend HScTNI- medically optimized at this time (4) Hiatal hernia: Plan: As above (5) CAD (coronary artery disease): Plan: nonobstructive sounding with history and medical management - await records from [facility] - Continue with Metoprolol- if HR or BP changes may need to reduce dose - Not on statin at this time- check lipid panel in AM- initiate as deemed appropriate - Continue DONG as BP tolerates (6) HLD (hyperlipidemia): Plan: As above (7) Hypothyroidism: Plan: TSH pending continue synthroid adjust as needed (8) HTN (hypertension): Plan: As above Admission and Anticipated Discharge Date Admission Date: May 17, 2022 Subjective 76 yo male reports feeling better. She states her chest hurts from yesterdays cardioversion. Review of Systems Review of Systems: All systems reviewed & are unremarkable except as noted in HPI & below Physical Exam Physical Exam: General: awake, alert, ill appearing Head: Normocephalic, atraumatic ENT: PERRL, EOMI, no pharyngeal exudate, mucous membranes dry Neuro: AAO x 3, speech clear and appropriate, strength intact bilaterally 5/5, sensation intact and equal all extremities and dermatomes, no pronator drift Chest: equal rise and fall of the chest, no accessory muscle use, no heaves or thrills, Clear to auscultation, on room air, Cardiac: sinus, skin warm dry, cap refill <3 seconds, peripheral pulses +2 no JVD, no murmur, no edema GI: NABS x 4 quadrants, soft, nontender to palpation, no rebound, guarding or tenderness : Spontaneously voiding, no pain, no CVA tenderness, Extremities: Normal inspection, no peripheral edema or erythema, calfs nontender to palpation Psych: Normal mood and affect Skin: no rash or erythema Results & Data Results & Data ([facility]) Vital Signs (Past 12 Hours) Vital Signs Temp Pulse Pulse Resp BP Pulse Ox O2 Del Method 05/18/22 19:15 37.3 C 89 16 117/62 92 Room Air 05/18/22 16:13 37.7 C H 76 18 113/60 95 Room Air 05/18/22 15:21 81 05/18/22 11:30 36.8 C 80 19 119/75 97 Room Air 05/18/22 10:42 71 PG Care Time/CCT Total # of Minutes Spent Total Time Spent with Patient: Total time spent is greater than 50% in coordination of care (as documented) at patient's floor/unit and/or counseling patient: Coding Level of Care Code 93933 Subseq Hosp Care Lvl 2 Diagnoses Atrial fibrillation with rapid ventricular response I48.91 GERD (gastroesophageal reflux disease) K21.9 Elevated troponin R77.8 Hiatal hernia K44.9 CAD (coronary artery disease) I25.10 HLD (hyperlipidemia) E78.5 Hypothyroidism E03.9 HTN (hypertension) I10
[2022-05-18] MEDS: TAFLUPROST/PF 1 EA DROPS OPB SCH (21:55)
[2022-05-18 22:55] LABS: Partial Thromboplastin Ratio 1.6
[2022-05-19] MEDS: HEPARIN SODIUM/DEXTROSE 25,000 UNITS/500 ML BAG IV SCH (04:00)
[2022-05-19] MEDS: ONDANSETRON INJ 2 MG/ML 2 ML VIAL IV PRN (05:25)
[2022-05-19 05:42] LABS: Basophils # (auto) 0.02 K/uL (0-0.2); Basophils % (auto) 0.2 %; Eosinophils # (auto) 0.22 K/uL (0-0.50); Eosinophils % (auto) 2.5 %; Hematocrit (blood only) 31.4 % (34.1-44.9); Hemoglobin 10.3 g/dl (12.0-16.0); Immature Granulocytes # (auto) 0.06 K/uL (0.00-0.02); Immature Granulocytes % (auto) 0.7 %; Lymphocytes # (auto) 1.33 K/uL (1.2-3.4); Lymphocytes % (auto) 15.1 %; Mean Corpuscular Hgb Conc 32.8 g/dL (32.0-36.0); Mean Corpuscular Volume 88.5 fL (80.0-100.0); Mean Platelet Volume 9.8 fL (9.4-12.3); Monocytes # (auto) 0.72 K/uL (0.24-0.82); Monocytes % (auto) 8.2 %; Neutrophils # (auto) 6.44 K/uL (1.4-6.5); Neutrophils % (auto) 73.3 %; Platelet Count 240 K/uL (130-400); RDW Coefficient of Variation 14.1 % (11.5-14.5); Red Blood Count 3.55 M/uL (3.93-5.22); White Blood Count 8.79 K/ul (4.8-10.8)
[2022-05-19 06:02] LABS: BUN Creatinine Ratio 13.1 (10-20); Calcium 8.9 mg/dl (8.5-10.1); Creatinine Clr Calc Pharmacy 24.7 ml/min; Est GFR (African American) 32.2 ml/min; Est GFR (Non-African American) 27.8 ml/min; Magnesium 1.8 mg/dl (1.7-2.4); Potassium 3.6 mmol/L (3.5-5.1)
[2022-05-19 06:07] LABS: Partial Thromboplastin Ratio 1.7
[2022-05-19 06:26] LABS: Partial Thromboplastin Time 47.3 Seconds (21.0-31.0)
[2022-05-19] MEDS: CARTEOLOL HCL 1% OP SOLN 5 ML BTL OPB SCH ×2 (08:24→20:26)
[2022-05-19] MEDS: AMIODARONE 200 MG TAB PO SCH ×2 (08:25→22:01)
[2022-05-19] MEDS: PANTOprazole 40 MG in SYRINGE 0 ML IV SCH ×2 (08:25→20:25)
[2022-05-19] MEDS: LEVOTHYROXINE SODIUM 50 MCG TABLET PO SCH (08:25)
[2022-05-19] MEDS: lisinopril 5 MG TAB PO SCH (09:37)
[2022-05-19] MEDS: SUCRALFATE 1 GM TAB PO SCH ×3 (09:37→20:25)
[2022-05-19] MEDS: amLODIPine BESYLATE 5 MG TAB PO SCH (09:37)
[2022-05-19] MEDS: METOPROLOL TARTRATE 25 MG TAB PO SCH ×2 (09:37→20:24)
[2022-05-19] MEDS: SIMETHICONE 80 MG CHEW PO SCH (20:34)
--- NOTE | 2022-05-19 20:35 | Electrocardiogram Report ---
Test Reason : Blood Pressure : / mmHG Vent. Rate : 078 BPM Atrial Rate : 078 BPM P-R Int : 142 ms QRS Dur : 086 ms QT Int : 428 ms P-R-T Axes : 054 043 043 degrees QTc Int : 487 ms Normal sinus rhythm Normal ECG When compared with ECG of 18-MAY-2022 05:25, No significant change was found Confirmed by Jt Borrero ([id number]) on 05/19/2022 8:35:25 PM Referred By: REFERRED SELF Confirmed By:Jt Borrero
--- NOTE | 2022-05-19 21:20 | Hospitalist Progress Note ---
Date of Service May 19, 2022 Assessment & Plan (1) Atrial fibrillation with rapid ventricular response: Plan: Patient presents symptomatic with rapid rate, ECG changes and tolerting rate/rythm poorly from heomodynamic standpoint - Cardioversion completed with initial rate control then followed by conversion to NSR at 1700 - Amiodarone infusion 150mg IV over 10 minutes followed by 1mg/hr infusion for 6 hours then 0.5mg/hr for 18 hours - if stable in morning can stop drip and convert to oral dosing - TSH level - Continue to keep MAG ~2.0 - K ~4.0 - ECHO in AM - Heparin infusion with likely transition to DOAC - Cardiology consulted- appreciate assistance On 05/18, HR appears improved. continue amiodarone and heparin drip. HR at goal. On 05/19, HR maintains at goal. Patient is complaining of nausea. This may be a side effect of amiodarone. will monitor. Paient though may be discharged tomorrow as her HR has been better controlled. (2) GERD (gastroesophageal reflux disease): Plan: GERD with hiatal hernia- she has history of paraesophageal repair - she is planned to have EGD/Colonoscopy in July - remains with dyspepsia and belching - IV PPI now and BID - Continue Carafate - Continue Simethicone- if symptoms persist consider imaging with CT or GI consultation - KUB now (3) Elevated troponin: Plan: Likely demand type II at this time - ECG resolved with rate control and conversion - continue to trend HScTNI- medically optimized at this time (4) Hiatal hernia: Plan: as above (5) CAD (coronary artery disease): Plan: nonobstructive sounding with history and medical management - await records from [facility] - Continue with Metoprolol- if HR or BP changes may need to reduce dose - Not on statin at this time- check lipid panel in AM- initiate as deemed luna ropriate - Continue DONG as BP tolerates (6) HLD (hyperlipidemia): Plan: as above (7) Hypothyroidism: Plan: SH pending continue synthroid adjust as needed (8) HTN (hypertension): Plan: as above Admission and Anticipated Discharge Date Admission Date: May 17, 2022 Subjective Patient reports having symptoms of nausea when she ambulates. Review of Systems Review of Systems: All systems reviewed & are unremarkable except as noted in HPI & below Physical Exam Physical Exam: General: awake, alert, ill appearing Head: Normocephalic, atraumatic ENT: PERRL, EOMI, no pharyngeal exudate, mucous membranes dry Neuro: AAO x 3, speech clear and appropriate, strength intact bilaterally 5/5, sensation intact and equal all extremities and dermatomes, no pronator drift Chest: equal rise and fall of the chest, no accessory muscle use, no heaves or thrills, Clear to auscultation, on room air, Cardiac: sinus, skin warm dry, cap refill <3 seconds, peripheral pulses +2 no JVD, no murmur, no edema GI: NABS x 4 quadrants, soft, nontender to palpation, no rebound, guarding or tenderness Extremities: Normal inspection, no peripheral edema or erythema, calfs nontender to palpation Psych: Normal mood and affect Skin: no rash or erythema Results & Data Results & Data ([facility]) Vital Signs (Past 12 Hours) Vital Signs Temp Pulse Pulse Resp BP Pulse Ox O2 Del Method 05/19/22 19:00 37.1 C 78 16 106/82 93 Room Air 05/19/22 15:40 72 05/19/22 15:08 37.1 C 74 17 115/56 L 90 Room Air 05/19/22 11:00 73 05/19/22 10:59 37.1 C 64 17 117/63 95 Room Air 05/19/22 09:36 113/66 PG Care Time/CCT Total # of Minutes Spent Total Time Spent with Patient: Total time spent is greater than 50% in coordination of care (as documented) at patient's floor/unit and/or counseling patient: Coding Level of Care Code 05221 Subseq Hosp Care Lvl 2 Diagnoses Atrial fibrillation with rapid ventricular response I48.91 GERD (gastroesophageal reflux disease) K21.9 Elevated troponin R77.8 Hiatal hernia K44.9 CAD (coronary artery disease) I25.10 HLD (hyperlipidemia) E78.5 Hypothyroidism E03.9 HTN (hypertension) I10
[2022-05-19] MEDS: TAFLUPROST/PF 1 EA DROPS OPB SCH (23:20)
[2022-05-20] MEDS: HEPARIN SODIUM/DEXTROSE 25,000 UNITS/500 ML BAG IV SCH ×2 (02:32→09:42)
[2022-05-20] MEDS: LEVOTHYROXINE SODIUM 50 MCG TABLET PO SCH (05:58)
[2022-05-20 06:30] LABS: Basophils # (auto) 0.04 K/uL (0-0.2); Basophils % (auto) 0.6 %; Eosinophils # (auto) 0.25 K/uL (0-0.50); Eosinophils % (auto) 3.8 %; Hematocrit (blood only) 32.3 % (34.1-44.9); Hemoglobin 10.8 g/dl (12.0-16.0); Immature Granulocytes # (auto) 0.04 K/uL (0.00-0.02); Immature Granulocytes % (auto) 0.6 %; Lymphocytes # (auto) 1.47 K/uL (1.2-3.4); Lymphocytes % (auto) 22.4 %; Mean Corpuscular Hemoglobin 29.2 pg (25.0-34.0); Mean Corpuscular Hgb Conc 33.4 g/dL (32.0-36.0); Mean Corpuscular Volume 87.3 fL (80.0-100.0); Mean Platelet Volume 10.1 fL (9.4-12.3); Monocytes # (auto) 0.62 K/uL (0.24-0.82); Monocytes % (auto) 9.5 %; Neutrophils # (auto) 4.13 K/uL (1.4-6.5); Neutrophils % (auto) 63.1 %; Platelet Count 258 K/uL (130-400); RDW Coefficient of Variation 13.9 % (11.5-14.5); RDW Standard Deviation 44.6 fL (36.4-46.3); White Blood Count 6.55 K/ul (4.8-10.8)
[2022-05-20 06:50] LABS: Partial Thromboplastin Ratio 1.5; Partial Thromboplastin Time 40.5 Seconds (21.0-31.0)
[2022-05-20 06:57] LABS: BUN Creatinine Ratio 12.7 (10-20); Calcium 9.3 mg/dl (8.5-10.1); Creatinine Clr Calc Pharmacy 27.3 ml/min; Est GFR (African American) 36.5 ml/min; Est GFR (Non-African American) 31.5 ml/min; Magnesium 1.7 mg/dl (1.7-2.4); Potassium 3.9 mmol/L (3.5-5.1)
[2022-05-20] MEDS: PANTOprazole 40 MG in SYRINGE 0 ML IV SCH ×2 (08:37→20:54)
[2022-05-20] MEDS: CARTEOLOL HCL 1% OP SOLN 5 ML BTL OPB SCH ×2 (08:38→20:52)
[2022-05-20] MEDS: METOPROLOL TARTRATE 25 MG TAB PO SCH ×2 (08:39→20:59)
[2022-05-20] MEDS: SUCRALFATE 1 GM TAB PO SCH ×3 (08:39→20:55)
[2022-05-20] MEDS: AMIODARONE 200 MG TAB PO SCH ×3 (08:39→16:17)
[2022-05-20] MEDS: lisinopril 5 MG TAB PO SCH (08:39)
[2022-05-20] MEDS: amLODIPine BESYLATE 5 MG TAB PO SCH (08:39)
[2022-05-20] MEDS: TAFLUPROST/PF 1 EA DROPS OPB SCH (20:53)
[2022-05-20] MEDS: SIMETHICONE 80 MG CHEW PO SCH (21:09)
--- NOTE | 2022-05-20 21:10 | Hospitalist Progress Note ---
Date of Service May 20, 2022 Assessment & Plan (1) Atrial fibrillation with rapid ventricular response: Plan: Patient presents symptomatic with rapid rate, ECG changes and tolerting rate/rythm poorly from heomodynamic standpoint - Cardioversion completed with initial rate control then followed by conversion to NSR at 1700 - Amiodarone infusion 150mg IV over 10 minutes followed by 1mg/hr infusion for 6 hours then 0.5mg/hr for 18 hours - if stable in morning can stop drip and convert to oral dosing - TSH level - Continue to keep MAG ~2.0 - K ~4.0 - ECHO in AM - Heparin infusion with likely transition to DOAC - Cardiology consulted- appreciate assistance On 05/18, HR appears improved. continue amiodarone and heparin drip. HR at goal. On 05/19, HR maintains at goal. Patient is complaining of nausea. This may be a side effect of amiodarone. will monitor. Paient though may be discharged tomorrow as her HR has been better controlled. On 05/20 Her HR is better controlled and she is in sinus. However she continues to have nausea when she ambulates. likely from amiodarone. (2) GERD (gastroesophageal reflux disease): Plan: GERD with hiatal hernia- she has history of paraesophageal repair - she is planned to have EGD/Colonoscopy in July - remains with dyspepsia and belching - IV PPI now and BID - Continue Carafate - Continue Simethicone- if symptoms persist consider imaging with CT or GI consultation - KUB now (3) Elevated troponin: Plan: Likely demand type II at this time - ECG resolved with rate control and conversion - continue to trend HScTNI- medically optimized at this time (4) Hiatal hernia: Plan: as above (5) CAD (coronary artery disease): Plan: nonobstructive sounding with history and medical management - await records from [facility] - Continue with Metoprolol- if HR or BP changes may need to reduce dose - Not on statin at this time- check lipid panel in AM- initiate as deemed appropriate - Continue DONG as BP tolerates (6) HLD (hyperlipidemia): Plan: as above (7) Hypothyroidism: Plan: SH pending continue synthroid adjust as needed (8) HTN (hypertension): Plan: as above Admission and Anticipated Discharge Date Admission Date: May 17, 2022 Subjective 76 yo female reports that she continues to have nausea, not much improvement from yesterday. Review of Systems Review of Systems: All systems reviewed & are unremarkable except as noted in HPI & below Physical Exam Physical Exam: General: awake, alert, ill appearing Head: Normocephalic, atraumatic ENT: PERRL, EOMI, no pharyngeal exudate, mucous membranes dry Neuro: AAO x 3, speech clear and appropriate, strength intact bilaterally 5/5, sensation intact and equal all extremities and dermatomes, no pronator drift Chest: equal rise and fall of the chest, no accessory muscle use, no heaves or thrills, Clear to auscultation, on room air, Cardiac: sinus, skin warm dry, cap refill <3 seconds, peripheral pulses +2 no JVD, no murmur, no edema GI: NABS x 4 quadrants, soft, nontender to palpation, no rebound, guarding or tenderness Extremities: Normal inspection, no peripheral edema or erythema, calfs nontender to palpation Psych: Normal mood and affect Skin: no rash or erythema Results & Data Results & Data ([facility]) Vital Signs (Past 12 Hours) Vital Signs Temp Pulse Pulse Resp BP Pulse Ox O2 Del Method 05/20/22 19:00 36.9 C 63 18 126/70 97 Room Air 05/20/22 17:01 61 05/20/22 15:28 36.9 C 62 18 116/61 97 Room Air 05/20/22 11:25 36.6 C 63 18 122/63 95 Room Air 05/20/22 09:43 61 PG Care Time/CCT Total # of Minutes Spent Total Time Spent with Patient: Total time spent is greater than 50% in coordination of care (as documented) at patient's floor/unit and/or counseling patient: Coding Level of Care Code 45246 Subseq Hosp Care Lvl 2 Diagnoses Atrial fibrillation with rapid ventricular response I48.91 GERD (gastroesophageal reflux disease) K21.9 Elevated troponin R77.8 Hiatal hernia K44.9 CAD (coronary artery disease) I25.10 HLD (hyperlipidemia) E78.5 Hypothyroidism E03.9 HTN (hypertension) I10
[2022-05-21] MEDS: LEVOTHYROXINE SODIUM 50 MCG TABLET PO SCH (06:05)
[2022-05-21 06:20] LABS: Partial Thromboplastin Ratio 1.4; Partial Thromboplastin Time 39.5 Seconds (21.0-31.0)
[2022-05-21] MEDS: AMIODARONE 200 MG TAB PO SCH ×2 (07:51→13:48)
[2022-05-21] MEDS: CARTEOLOL HCL 1% OP SOLN 5 ML BTL OPB SCH (07:51)
[2022-05-21] MEDS: lisinopril 5 MG TAB PO SCH (07:52)
[2022-05-21] MEDS: amLODIPine BESYLATE 5 MG TAB PO SCH (07:52)
[2022-05-21] MEDS: METOPROLOL TARTRATE 25 MG TAB PO SCH (07:52)
[2022-05-21] MEDS: SUCRALFATE 1 GM TAB PO SCH (07:52)
[2022-05-21] MEDS: PANTOprazole 40 MG in SYRINGE 0 ML IV SCH (07:53)
--- NOTE | 2022-05-21 08:56 | Cardiology Progress Note ---
Date of Service May 21, 2022 Assessment & Plan (1) Paroxysmal A-fib: (2) Anticoagulant long-term use: (3) CAD (coronary artery disease): (4) Moderate mitral regurgitation: (5) HTN (hypertension): (6) CKD (chronic kidney disease) stage 3, GFR 30-59 ml/min: Plan 76-year-old woman with apparently noncritical coronary artery disease, moderate mitral regurgitation, and new onset atrial fibrillation with rapid ventricular rate requiring emergent cardioversion 4 days ago. She is doing well, okay for discharge from a cardiac standpoint. Recommend adjusting her discharge medical regimen as follows: -Reduce amiodarone to 200 mg twice daily, this will likely be further reduced to 200 mg daily as an outpatient in a few weeks. -Discontinue amlodipine, she has a tendency to low blood pressure and orthostasis and is on additional vasoactive medications (amiodarone/metoprolol) -Continue lisinopril 5 mg daily -Can change metoprolol tartrate to metoprolol succinate 25 mg daily -Add apixaban 5 mg twice daily for thromboembolic prophylaxis (she is worried about cost, I will drop some samples by around lunchtime). -She does not require aspirin for her CAD since she will be on apixaban. -Likely she should be on a statin for her CAD, but rather than initiating additional medication currently, will address this at follow-up. I can see her in follow-up in 2 to 3 weeks, further medication adjustments at that time. Admission and Anticipated Discharge Date Admission Date: May 17, 2022 Subjective She feels well today, no further nausea. No chest pain, dyspnea, palpitations. She notes that at baseline her recent systolic blood pressure has been in the 100-110 mmHg range and that she becomes lightheaded upon standing at times (such as when she is gardening). Telemetry showed sinus rhythm at 60-70 bpm overnight. No dysrhythmias. Physical Exam Physical Exam: No distress. Normotensive. Pulse 62 bpm and regular. Skin: no ecchymoses or generalized lesions. HEENT: unremarkable. Neck: no JVD or carotid bruits. Lungs: Mildly decreased breath sounds, clear. Cardiac: Regular rhythm, 2/6 holosystolic murmur heard only in the axilla, no diastolic murmur or gallop. Abdomen: benign. Extremities: no edema, pulses intact. Neurologic: Normal affect and conversation, grossly nonfocal. Results & Data ([facility]) Vital Signs (Past 12 Hours) Vital Signs Temp Pulse Pulse Resp BP Pulse Ox O2 Del Method 05/21/22 07:49 98.6 F 63 18 130/72 96 Room Air 05/21/22 03:50 98.4 F 71 14 132/66 96 Room Air 05/21/22 03:17 61 05/20/22 22:44 98.4 F 61 18 125/72 98 Room Air Diagnostic Findings Echocardiogram showed normal systolic function with moderate mitral regurgitatio n. PG Care Time/CCT Total # of Minutes Spent Total Time Spent with Patient: Total time spent is greater than 50% in coordination of care (as documented) at patient's floor/unit and/or counseling patient: Coding Level of Care Code 35618 Subseq Hosp Care Lvl 3 Diagnoses Paroxysmal A-fib I48.0 Anticoagulant long-term use Z79.01 CAD (coronary artery disease) I25.10 Moderate mitral regurgitation I34.0 HTN (hypertension) I10 CKD (chronic kidney disease) stage 3, GFR 30-59 ml/min N18.30
[2022-05-21] MEDS ORDERED: APIXABAN 5 MG TABLET PO SCH (11:30)
[2022-05-21] MEDS ORDERED: PANTOprazole 40 MG TAB PO SCH (21:00)
--- NOTE | 2022-05-22 09:29 | Discharge Summary ---
Date of Service May 21, 2022 Principal Diagnosis Atrial fibrillation with RVR Discharge Exam General: awake, alert, ill appearing Head: Normocephalic, atraumatic ENT: PERRL, EOMI, no pharyngeal exudate, mucous membranes dry Neuro: AAO x 3, speech clear and appropriate, strength intact bilaterally 5/5, sensation intact and equal all extremities and dermatomes, no pronator drift Chest: equal rise and fall of the chest, no accessory muscle use, no heaves or thrills, Clear to auscultation, on room air, Cardiac: sinus, skin warm dry, cap refill <3 seconds, peripheral pulses +2 no JVD, no murmur, no edema GI: NABS x 4 quadrants, soft, nontender to palpation, no rebound, guarding or tenderness Extremities: Normal inspection, no peripheral edema or erythema, calfs nontender to palpation Psych: Normal mood and affect Skin: no rash or erythema Discharge Data Allergies Allergy/AdvReac Type Severity Reaction Status Date / Time codeine AdvReac Nausea Verified 05/17/22 18:00 morphine AdvReac Nausea Verified 05/17/22 18:00 Consultations 05/17/22 16:20 ED Decision to Admit Stat 05/17/22 20:47 Consult Cardiology Routine Hospital Course (1) Atrial fibrillation with rapid ventricular response: Patient presents symptomatic with rapid rate, ECG changes and tolerting rate/rythm poorly from heomodynamic standpoint - Cardioversion completed with initial rate control then followed by conversion to NSR at 1700 - Amiodarone infusion 150mg IV over 10 minutes followed by 1mg/hr infusion for 6 hours then 0.5mg/hr for 18 hours - if stable in morning can stop drip and convert to oral dosing - TSH level - Continue to keep MAG ~2.0 - K ~4.0 - ECHO in AM - Heparin infusion with likely transition to DOAC - Cardiology consulted- appreciate assistance On 05/18, HR appears improved. continue amiodarone and heparin drip. HR at goal. On 05/19, HR maintains at goal. Patient is complaining of nausea. This may be a side effect of amiodarone. will monitor. Paient though may be discharged tomorrow as her HR has been better controlled. On 05/20 Her HR is better controlled and she is in sinus. However she continues to have nausea when she ambulates. likely from amiodarone. On 05/21 Symptoms improved. Ok for discharge. Appreciate input from cardio: (2) GERD (gastroesophageal reflux disease): GERD with hiatal hernia- she has history of paraesophageal repair - she is planned to have EGD/Colonoscopy in July - remains with dyspepsia and belching - Continue Carafate - Continue Simethicone- if symptoms persist consider imaging with CT or GI consultation -resume PPI (3) Elevated troponin: Likely demand type II at this time - ECG resolved with rate control and conversion - continue to trend HScTNI- medically optimized at this time (4) Hiatal hernia: as above (5) CAD (coronary artery disease): nonobstructive sounding with history and medical management - await records from [facility] - Continue with Metoprolol- if HR or BP changes may need to reduce dose - Not on statin at this time- check lipid panel in AM- initiate as deemed appropriate - Continue DONG as BP tolerates (6) HLD (hyperlipidemia): as above (7) Hypothyroidism: SH pending continue synthroid adjust as needed (8) HTN (hypertension): as above Total Time Total Time Spent Total Time Spent (In Minutes): 35 Discharge Plan Discharge Items Patient Disposition: Home - Self-Care Reason For Visit: CHEST PAIN, JAW PAIN, VOMITING Discharge Diagnosis: Rapid atrial fibrillation Activity: Resume your previous activity Non-emergency contact: Primary Care Provider Call non-emergency contact if: you have any medication questions Follow-up/Referrals: Mansoor Parry DO [Primary Care Provider] - Diet: Heart Healthy Addtl Attending Provider Instructions: Mrs. Mills, It was a pleasure taking care of you. It appears you had an elevated heart rate which was caused by atrial fibrillation. Thankfully you were cardioverted, then placed on amiodaron. Will discharge you on amiodarone 200 mg twice daily, this will likely be further reduced to 200 mg daily as an outpatient in a few weeks. -Discontinue amlodipine, due to tendency to low blood pressure and orthostasis -Continue lisinopril 5 mg daily -Can change metoprolol tartrate to metoprolol succinate 25 mg daily -Add apixaban 5 mg twice daily for thromboembolic prophylaxis -You do not require aspirin for her CAD since you will be on apixaban. -Likely should be on a statin for her CAD, but rather than initiating additional medication currently, will address this at follow-up. Followup with Dr. Hilton in 2-3 weeks. Pending Studies at Discharge: No Stand-Alone Forms: My [facility] [employer], Smoking Cessation Medications and DC Order Prescriptions: New Eliquis 5 mg Tablet 5 mg PO BID Qty: 60 0RF amiodarone 200 mg Tablet 200 mg PO BIDM Qty: 60 0RF metoprolol succinate 25 mg capsule,sprinkle,ER 24hr 25 mg PO DAILY Qty: 30 0RF Continued sucralfate 1 gram tablet 1 g PO ACHS calcium carbonate 300 mg (750 mg) tablet,chewable 300 tab PO BID levothyroxine 50 mcg tablet 50 mcg PO DAILY pantoprazole 40 mg tablet,delayed release (DR/EC) 40 mg PO DAILY carteolol 1 % drops 1 drp OPB Q12 lisinopril 5 mg tablet 5 mg PO DAILY simethicone 80 mg Tablet,Chewable 80 mg PO HS cholecalciferol (vitamin D3) [Vitamin D3] 25 mcg (1,000 unit) Tablet 25 mcg PO DAILY Zioptan (PF) 0.0015 % Dropperette 1 drp OPHTHALMIC (EYE) DIRECTED Rx Instructions: administer at bedtime Discontinued amlodipine 5 mg tablet 5 mg PO DAILY omeprazole 20 mg capsule,delayed release(DR/EC) 20 mg PO BID metoprolol tartrate 25 mg tablet 25 mg PO BID Discharge Orders: Discharge Order (Routine); Ordered 05/21/22 Ordered By: Eulogio Tapia/Other Patient Handouts: Warning Signs of a Heart Attack Admission Data Admit Date/Time: 05/17/22 17:34 Attending Provider: Eulogio Bradshaw Admit Provider: Ken Covington Primary Care Provider: Mansoor Parry Other Providers: Ken Covington ; Dc Hilton Other Interventions: Discharge Summary Assessment (RN) Last Done: 05/21/22 13:17 Coding Level of Care Code D/C DAY MANAGEMENT >30 MINS Diagnoses Atrial fibrillation with rapid ventricular response I48.91 GERD (gastroesophageal reflux disease) K21.9 Elevated troponin R77.8 Hiatal hernia K44.9 CAD (coronary artery disease) I25.10 HLD (hyperlipidemia) E78.5 Hypothyroidism E03.9 HTN (hypertension) I10
== END 2022-05-21 14:29 | disposition home or self-care (01) | DRG 281 ==
LOC: ED 15:16 → SUATTDRO 17:34 → EDINP 17:34 → 2E 20:48 → 2S 21:58 → 2E 22:17
DX: I21.A1 Myocardial infarction type 2; R11.0 Nausea; N17.9 Acute kidney failure, unspecified; Z82.49 Family history of ischemic heart disease and other diseases of the circulatory system; I48.0 Paroxysmal atrial fibrillation; T46.2X5A Adverse effect of other antidysrhythmic drugs, initial encounter; I12.9 Hypertensive chronic kidney disease with stage 1 through stage 4 chronic kidney disease, or unspecified chronic kidney disease; I34.0 Nonrheumatic mitral (valve) insufficiency; T50.905A Adverse effect of unspecified drugs, medicaments and biological substances, initial encounter; Z79.890 Hormone replacement therapy; I25.10 Atherosclerotic heart disease of native coronary artery without angina pectoris; Z88.5 Allergy status to narcotic agent; N18.30 Chronic kidney disease, stage 3 unspecified; E78.5 Hyperlipidemia, unspecified; Z79.899 Other long term (current) drug therapy; I95.2 Hypotension due to drugs; I47.1 Supraventricular tachycardia; E03.9 Hypothyroidism, unspecified; K44.9 Diaphragmatic hernia without obstruction or gangrene; K21.9 Gastro-esophageal reflux disease without esophagitis; H40.9 Unspecified glaucoma